=== PATIENT | male | born 2000 | race Two or more races ===

== ENCOUNTER 2025-07-31 20:29 | Emergency (ER) | payer OTHER, SELFPAY ==
[2025-07-31 20:31] VITALS: BMI 40.6
[2025-07-31 21:21] VITALS: BP 133/82; PULSE 99; RESP 18; TEMP 37.2; O2SAT 97
--- NOTE | 2025-07-31 21:28 | XR_ITS ---
Examination: Knee, right, 3 views Technique: Knee AP, lateral, oblique 3 views Date and time of exam: July 31, 2025, 2133 hours INDICATION: Right knee pain beginning 3 weeks ago. FINDINGS: No fracture or dislocation No arthritic change IMPRESSION: Negative for osseous abnormality
--- NOTE | 2025-07-31 21:28 | XR_ITS ---
Examination: Right elbow 3 views Technique: Elbow AP, oblique, lateral 3 views Exam date and time: July 31, 2025, 2134 hours INDICATION: Right elbow pain beginning 3 weeks ago. FINDINGS: No fracture or dislocation 4 mm posterior bony olecranon spur. No elbow effusion IMPRESSION: No fracture or dislocation No elbow effusion.
--- NOTE | 2025-07-31 21:29 | PD.EDRME ---
Rapid Medical Screening Exam RME Arrival date/time: 07/31/25 20:29 24M with no significant PMH presents to ED with 2 week of intermittent and traveling joint pain w/o fall/trauma. Patient was at [facility] 2 weeks ago and was given ABX for unknown infection. Currently, has R elbow and joint pain. Chief Complaint: Extremity Injury, Upper Time Seen by Provider: 07/31/25 20:53 Vital signs: Vital Signs Temperature 98.9 F 07/31/25 21:21 Pulse Rate 99 07/31/25 21:21 Respiratory Rate 18 07/31/25 21:21 Blood Pressure 133/82 H 07/31/25 21:21 Pulse Oximetry (%) 97 07/31/25 21:21 Oxygen Delivery Method Room Air 07/31/25 21:21 Exam: R elbow/knee swelling. No redness. Clinical Impression: joint pain vs rheumatological disorder vs septic arthritis
[2025-07-31 21:54] LABS: Sed Rate (ESR) 57 mm/hr (0-15)
[2025-07-31 21:56] LABS: Basophils # (Auto) 0.1 Thou/mm3 (0.0-0.2); Basophils % (Auto) 0 % (0-2.5); Eosinophils # (Auto) 0.0 Thou/mm3 (0.0-0.5); Eosinophils % (Auto) 0 % (0-10); Hematocrit 45.2 % (41.0-53.0); Hemoglobin 14.9 g/dL (13.5-16.0); Immature Granulocytes Auto 0.06 Thou/mm3 (0.00-0.00); Lymphocytes # (Auto) 2.1 Thou/mm3 (1.0-4.8); Lymphocytes % (Auto) 11 % (10-50); Mean Corpuscular HGB Conc 33.0 g/dl (31.0-37.0); Mean Corpuscular Hemoglobin 24.1 pg (25.0-35.0); Mean Corpuscular Volume 73 fL (80-100); Monocytes # (Auto) 2.0 Thou/mm3 (0.0-0.8); Monocytes % (Auto) 10 % (0-12); Neutrophils # (Auto) 15.2 Thou/mm3 (1.8-7.7); Neutrophils % (Auto) 78 % (37-80); Nucleated Red Blood Cell # 0.00 Thou/mm3 (0.00-0.00); Nucleated Red Blood Cell % 0 /100 WBC (0); Platelet Count 363 Thou/mm3 (140-440); RDW Standard Deviation 35.0 fL (35.1-43.9); Red Blood Count 6.18 Miln/mm3 (4.50-5.90); White Blood Count 19.5 Thou/mm3 (3.8-10.6)
[2025-07-31 22:11] LABS: Alanine Aminotransferase 33 U/L (10-49); Albumin, Serum 4.5 gm/dL (3.5-5.0); Albumin/Globulin Ratio 1.1 (1.2-2.2); Alkaline Phosphatase 94 U/L (46-116); Anion Gap 10 (7-16); Aspartate Amino Transferase < 8 U/L (0-34); BUN/Creatinine Ratio 10 Ratio (12-20); Bilirubin,Total 0.8 mg/dL (0.3-1.2); Blood Urea Nitrogen 13 mg/dL (9-23); C-Reactive Protein 4.2 mg/dL (0.0-0.9); Calcium 9.9 mg/dL (8.3-10.6); Calcium (Corrected) 9.9 mg/dL (8.5-10.1); Carbon Dioxide 26.0 mMol/L (20.0-31.0); Chloride 102 mMol/L (98-107); Creatinine (Component) 1.3 mg/dL (0.6-1.3); Estimated Creatinine Clearance 125.2 mL/min (>60); Globulin 4.0 gm/dL (2.3-3.5); Glucose 99 mg/dL (74-106); Osmolality,Calculated 275 (275-295); Potassium 4.0 mMol/L (3.4-5.1); Sodium 138 mMol/L (136-145); Total Protein 8.5 gm/dL (5.7-8.2); eGFR > 60 See Note
[2025-07-31 23:53] VITALS: BP 152/92; PULSE 103; RESP 18; TEMP 37.1; O2SAT 95
--- NOTE | 2025-08-01 00:10 | EDNOTE_ITS ---
Upper Extremity Injury RME/HPI General Chief Complaint: Extremity Injury, Upper Stated Complaint: LEFT ARM/LEG PAIN Time Seen by Provider: 07/31/25 20:53 Arrival date/time: 07/31/25 20:29 RME / HPI RME / HPI narrative: 07/31/25 20:29 24M with no significant PMH presents to ED with 2 week of intermittent and traveling joint pain w/o fall/trauma. Patient was at [facility] 2 weeks ago and was given ABX for unknown infection. Currently, has R elbow and joint pain. Dr. Marie?s Main ED Evaluation: 24yo male presenting with generalized progressively worsening joint aches x 2 weeks. Now reports having painful ambulation particularly when bearing weight on the right knee. No recent fever, chills, V/D, cough, or URI. PMH unremarkable. PSH unremarkable. Denies alcohol or tobacco use. NKA. Related Data Previous Rx's ?Medication ?Instructions ?Recorded hydrocodone 5 mg-acetaminophen 325 1 tab PO Q8H PRN pa in #24 tabs 08/01/25 mg tablet naproxen 250 mg tablet 250 mg PO BID PRN pain #10 t abs 08/01/25 prednisone 20 mg tablet 40 mg PO QDAY 5 days #10 tab s 08/01/25 Allergies Allergy/AdvReac Type Severity Reaction Status Date / Time No Known Allergies Allergy Verified 07/31/25 20:31 Review of Systems Review of Systems Systems Reviewed: All systems reviewed, normal except as documented Past Medical History Past Medical History CARDIAC: Negative Congestive Heart Failure RESPIRATORY: Negative Chronic Obstructive Pulmonary Disease (COPD) GENITOURINARY: Negative Renal Disease ENDOCRINE: Negative Diabetes Mellitus Type 1 or Diabetes Mellitus Type 2 Social History SMOKING STATUS: Never smoker ED Exam Narrative Physical exam: GENERAL APPEARANCE: alert and oriented x 4, well-developed, well-nourished, nontoxic, complaining of generalized arthralgias, no acute distress VITALS: All vitals were reviewed and the pulse ox is 95% on room air, which is normal according to my interpretation. HEENT: Normocephalic, atraumatic; pupils equal, round, reactive to light; EOMI; mucous membranes pink, moist; erythematous vesicles to the posterior oropharynx without exudative lesions or tonsillar hypertrophy NECK: Supple LUNGS: CTABL; no wheezes, no rales, no rhonchi HEART: Mildly tachycardic, regular rhythm; normal S1, S2; no murmurs ABDOMEN: non distended; soft, no tenderness BACK: no CVA tenderness EXTREMITIES: atraumatic; generalized diffuse arthralgias with ROM at the elbows/wrists and knees (R>L), no erythema or induration overlying the joints, distal function intact NEUROLOGIC: awake; alert and oriented x4; cranial nerves II-XII grossly intact; no focal sensory or motor deficits PSYCHIATRIC: appropriate mood and affect SKIN: warm, dry, normal color; no rashes Course Quality Measures none Orders Category Date Time Status Bedside COVID-19 Antigen Test NOW Care 08/01/25 00:24 Active Bedside Influenza A&B Antigen Test NOW Care 08/01/25 00:40 Completed XR elbow comp RT min 3V Stat Exams 07/31/25 21:28 Completed XR knee RT 3V Stat Exams 07/31/25 21:28 Completed CBC Stat Lab 07/31/25 21:35 Completed CMP [Comprehensive Metabolic Panel] Stat Lab 07/31/25 21:35 Completed CRP [C-Reactive Protein] Stat Lab 07/31/25 21:35 Completed ESR [Sed Rate (ESR)] Stat Lab 07/31/25 21:35 Completed Ketorolac Inj [Toradol Inj] Med 08/01/25 00:26 Discontinued 30 mg IVP X1 ONE Morphine* Inj Med 08/01/25 00:26 Active 4 mg IVP Q1H PRN Prochlorperazine Inj [Compazine Inj] Med 08/01/25 00:27 Discontinued 5 mg IV X1 ONE dexAMETHasone INJ [Decadron Inj] Med 07/31/25 21:28 Discontinued 10 mg PO X1 ONE Vital Signs Vital signs: Vital Signs Temperature 98.9 F 07/31/25 21:21 Pulse Rate 99 07/31/25 21:21 Respiratory Rate 18 07/31/25 21:21 Blood Pressure 133/82 H 07/31/25 21:21 Pulse Oximetry (%) 97 07/31/25 21:21 Oxygen Delivery Method Room Air 07/31/25 21:21 Extremity Injury MDM Narrative MDM Narrative:: Scribe Attestation: 08/01/25 Anika Sarah am scribing for and in the presence of Dr. Marie. 24yo male presenting with generalized progressively worsening joint aches x 2 weeks. Now reports having painful ambulation particularly when bearing weight on the right knee. Please see PE findings. Lab markers demonstrated WBC count 19k, Hgb 14.9, normal Plt count, no left shift or bandemia. Patient underwent routine left elbow and right knee x-rays, both of which were unremarkable for erosive changes/bony joint knee disturbance. There is a right knee effusion. Patient placed on monitoring specialist, given IVF narcotic analgesics/antiemetics with [id number] relief. Patient also given IV steroids and NSAIDs for what is likely viral-induced synovitis. COVID/Influenza negative. Will treat symptomatically and ensure close follow-up. Patient data External records reviewed:: [facility] previous records (Per chart review, patient has no previous ED visits or admissions to this facility.) Clinical information provided by:: patient Social determinants that could affect healthcare access:: none Patient has the following chronic illnesses:: none How is presenting disease/condition affected by chronic disease/condition?: no chronic disease Evaluation data The following diagnostics were reviewed and interpreted by me:: lab results and radiology exam(s) Lab and/or radiology exams considered but not ordered:: none Interpretation Summary: [facility] Report Signed Patient: MONTSE CUNNINGHAM [facility]. Record#: [id number] Birthdate: 2000 Age/Sex: 24 / M Location: [facility] Attending Dr: Ordering Physician: Dewayne Sung PA-C Date of Service: 07/31/25 Procedure(s): XR knee RT 3V Accession Number(s): [id number] cc: Jose Pennington MD; NO PRIMARY/FAMILY,PHYSICIAN; Dewayne Sung PA-C~ Examination: Knee, right, 3 views Technique: Knee AP, lateral, oblique 3 views Date and time of exam: July 31, 2025, 2133 hours INDICATION: Right knee pain beginning 3 weeks ago. FINDINGS: No fracture or dislocation No arthritic change IMPRESSION: Negative for osseous abnormality Dictated By: Jose Pennington MD Signed By: <Electronically signed by Jose Pennington MD in OV> 07/31/252202 [facility] Report Signed Patient: MONTSE CUNNINGHAM Record#: [id number] Birthdate: 2000 Age/Sex: 24 / M Location: [facility] Attending Dr: Ordering Physician: Dewayne Sung PA-C Date of Service: 07/31/25 Procedure(s): XR elbow comp RT min 3V Accession Number(s): [id number] cc: Jose Pennington MD; NO PRIMARY/FAMILY,PHYSICIAN; Dewayne Sung PA-C~ Examination: Right elbow 3 views Technique: Elbow AP, oblique, lateral 3 views Exam date and time: July 31, 2025, 2134 hours INDICATION: Right elbow pain beginning 3 weeks ago. FINDINGS: No fracture or dislocation 4 mm posterior bony olecranon spur. No elbow effusion IMPRESSION: No fracture or dislocation No elbow effusion. Dictated By: Jose Pennington MD Signed By: <Electronically signed by Jose Pennington MD in OV> 07/31/256 Medications / Prescriptions Medications or Prescriptions considered but not ordered:: none Medication administrations:: Medication Administration History Morphine Sulfate (Morphine Sulf Inj 4 Mg/Ml Vial) 4 mg IVP Q1H PRN PRN Reason: Moderate Pain Discontinued Medications Dexamethasone Sodium Phosphate (Dexamethasone Sod Phos Inj 10 Mg/Ml Vial) 10 mg PO X1 ONE Stop: 07/31/25 21:29 Last Admin: 07/31/25 22:39 Dose: 10 mg Documented By: SR Ketorolac Tromethamine (Ketorolac Inj 30 Mg/Ml Vial) 30 mg IVP X1 ONE Stop: 08/01/25 00:27 Last Admin: 08/01/25 00:37 Dose: 30 mg Documented By: JACOBO Prochlorperazine Edisylate (Prochlorperazine Inj 5 Mg/Ml Vial 2 Ml) 5 mg IV X1 ONE; Protocol Stop: 08/01/25 00:28 Last Admin: 08/01/25 00:37 Dose: 5 mg Documented By: JACOBO see above Consultations Consultation(s) initiated? (list below): No Diagnosis Upper Extremity Injury Differential Diagnosis: other (septic arthritis, synovitis, influenza) Most likely diagnosis given after review of the tests above:: see clinical impression below Admission Indicated Admission indicated?: not indicated Admission Request Was there a request for admission?: No Disposition Plan Disposition Plan: Discharge Discharge Attestation Discharge Attestation: The patient and all family members were given an opportunity to ask questions and understood the discharge instructions. Discharge instructions specifically effects, indications for sooner follow up or return to the emergency department, and the expected course of current diagnosis. Patient condition: Stable Discharge Plan Plan Patient Disposition: HOME (Self Care) Discharge Disposition comment: Stable Prescriptions/Referrals Prescriptions/Med Rec: New hydrocodone-acetaminophen 5-325 mg tablet 1 tab PO Q8H MDD 3 tab PRN (Reason: pain) Qty: 24 0RF prednisone 20 mg tablet 40 mg PO QDAY 5 Days Qty: 10 0RF Taper: Prednisone Taper 40 mg DAILY for 5 Days and 0 Hour naproxen 250 mg tablet 250 mg PO BID PRN (Reason: pain) Qty: 10 0RF Referrals: No Primary/Family,Physician [Primary Care Provider] - In 1 week Problem List Clinical Impression: Systemic viral illness, Acute joint pain Patient/Caregiver Discharge Instructions Education Materials: Medicine for Pain, ED Arthralgia, ED Viral Syndrome (Adult) Additional Instructions: Ice compresses x 24 hours to involve joints. Alternate with warm moist heat thereafter. Medication as directed. Follow-up with primary care doctor in 3 to 5 days. Return for persistently high fevers vomiting lightheadedness or general worse condition. Print Language: Togolese Stand Alone Forms: Stacy Award Info., Patient Portal Info Letter
[2025-08-01] MEDS: PROCHLORPERAZINE INJ 5 MG/ML VIAL 2 ML IV (00:37)
[2025-08-01] MEDS: KETOROLAC INJ 30 MG/ML VIAL IVP (00:37)
[2025-08-01 03:19] VITALS: BP 138/91; PULSE 85; RESP 16; TEMP 36.8; O2SAT 94
== END 2025-08-01 03:29 | disposition home or self-care (01) ==
PROVIDERS: Physician Assistant; Emergency Provider Emergency Medicine
DX: B34.9 Viral infection, unspecified (principal); M25.461 Effusion, right knee; M25.521 Pain in right elbow; M25.561 Pain in right knee
CPT/HCPCS: 36415; 73080; 73562; 80053; 85025; 85652; 86140; 87502; 87635; 96374; 99283; J0780; J1100; J1885